=== PATIENT | male | born 1955 | race Caucasian/White ===

== ENCOUNTER 2025-03-19 15:55 | Emergency (ER) | payer MEDICARE ==
[~2025-03-19] VITALS: Ht 170.2 cm; Wt 73.0 kg
[2025-03-19 16:00] VITALS: TEMP 97.9
--- NOTE | 2025-03-19 16:05 | Physician Documentation ---
History of Present Illness Stated Complaint: EYE REDNESS Time Seen by MD: 16:03 HPI This is a very pleasant 69-year-old male that presents to the emergency department for evaluation of an injury to his eye sustained 2 days ago. Patient reports that he was working on a table saw when a piece of wood that has nails in it something flew up and hit him in the eye he thought that he would remove the debris if there was anything he was not sure if there was anything in it at that time then over the course of the last 2 days his eyes become red and sore. Patient reports that it bothers him mostly at night. Patient reports that his eye has become more sensitive to light over the last day or 2. Patient denies any other symptoms at this time. Medication Reconciliation Allergies: Coded Allergies: No Known Allergies (Unverified , 03/19/25) Review of Systems ROS As stated above in the HPI, otherwise all systems are reviewed and negative. Physical Exam Physical Exam VITALS: Reviewed and as above. GENERAL: Alert, no apparent distress. HEENT: Normocephalic, atraumatic, PERRL, EOMI, small area of subconjunctival hemorrhage hemorrhage noted to the superior portion of the globe upon examination this area is consistent with something striking the eye there is no object visible in the eye at this time, area corresponds with the fluorescein strip showing an abrasion area consistent with corneal abrasion, dry mucosa, no erythema. NEURO: Oriented x4, No motor or sensory deficit PSYCH: Normal mood and affect, no agitation Medical Decision Making Additional information obtaine: other Findings 69-year-old male presented to the ED for evaluation of right eye injury sustained two days prior while using a table saw. History notable for direct impact from wood with nails; patient was unsure if any debris remained. Over the past 48 hours, he developed progressive ocular pain, redness, and photophobia, with nocturnal worsening. No other systemic or ocular symptoms reported. On examination, no evidence of open globe injury, penetrating trauma, or retained foreign body. Slit-lamp and fluorescein staining confirmed a corneal abrasion. No signs of corneal ulcer, infiltrate, or vision loss. No contact lens use. Diagnosis: Traumatic corneal abrasion. Medical decision-making: Infection prevention: Topical ophthalmic antibiotics are commonly prescribed for corneal abrasions to reduce risk of secondary infection, though high-quality evidence for efficacy is limited and no specific regimen is strongly supported. Ciprofloxacin drops selected for broad-spectrum coverage. Pain control: Patient advised on oral analgesics (acetaminophen/NSAIDs) for symptomatic relief. Topical NSAIDs may reduce pain but were not prescribed at discharge. No topical anesthetics dispensed for home use per current consensus guidelines. Adjuncts: Artificial tears and sunglasses recommended for comfort and photophobia. Patching: Not indicated; evidence shows no benefit and possible delayed healing. Follow-up: Patient instructed to follow up with primary care and ophthalmology for reassessment and to monitor for complications (infection, persistent pain, vision changes). Disposition: Discharged in stable condition with ciprofloxacin ophthalmic drops, instructions for supportive care, and clear follow-up plan. Differential Dx:Considerations: Other, N/A Departure Disposition: HOME / SELF CARE / HOMELESS Impression: Primary Impression: Corneal abrasion Discharge Instructions: Corneal Abrasion Additional Instructions: You have a corneal abrasion, which is a scratch or injury to the clear surface of your eye. This can cause pain, redness, tearing, and sensitivity to light. Most corneal abrasions heal within a few days. Care Instructions: Antibiotic Eye Drops: Use the ciprofloxacin eye drops as prescribed. Wash your hands before and after using the drops. Do not touch the tip of the bottle to your eye or any surface. Use the drops for the full course, even if your eye feels better. Pain Relief: You may use [id number] pain medicine like acetaminophen or ibuprofen. Artificial tears can help soothe your eye. Sunglasses may help with light sensitivity. Do Not Patch Your Eye: Covering the eye with a patch is not recommended, as it may slow healing. Avoid Contact Lenses: Do not wear contact lenses until your eye is fully healed and cleared by your doctor. Protect Your Eye: Avoid rubbing your eye. Wear protective eyewear if you are doing any work that could injure your eyes in the future. Watch for Problems: If you notice increased pain, redness, discharge, changes in vision, or if your symptoms do not improve in 2448 hours, contact your doctor or return to the emergency department. Follow-Up: Schedule a follow-up visit with your primary care provider or an clinical informatics specialist (lead ruby on rails developer) as directed. Important: If you develop severe pain, vision loss, or if something seems stuck in your eye, seek medical attention right away. Most people recover quickly from a corneal abrasion. Following these instructions will help your eye heal and prevent infection. Referrals: NO PRIMARY CARE PROVIDER (PCP) Prescriptions Ciprofloxacin Hcl Ophth* (Ciloxan 0.35 Ophth Drops*) 2.5 Ml Bottle 1 DROP RIGHTEYE Q6H for 7 Days, #5 ML Prov: EMILIA RUSSELL 03/19/25 Education Educated: Patient Educated regarding: diagnosis, treatment, need for follow up Signature Scribe Signature: A Attestation: Scribed for Emilia Russell by ALISHA Nolasco . 03/19/25 17:48 EMILIA RUSSELL Mar 19, 2025 16:04
[2025-03-19] MEDS: proparacaine 0.5% ophthalmic drops 15ml EACHEYE ONE (17:10)
[2025-03-19] MEDS: fluorescein sod 1mg ophthalmic strip RIGHTEYE ONE (17:10)
[2025-03-19] MEDS ORDERED: CIPR2.5D21 RIGHTEYE (17:40)
[2025-03-19] MEDS: ciprofloxacin 0.3% 2.5ml ophthalmic solution RIGHTEYE ONE (17:50)
[2025-03-19 17:57] VITALS: BP 168/82; PULSE 62; RESP 15; O2SAT 98
== END 2025-03-19 18:01 | disposition home or self-care (01) ==
LOC: ER 15:56
DX: S05.01XA Injury of conjunctiva and corneal abrasion without foreign body, right eye, initial encounter (principal); W22.03XA Walked into furniture, initial encounter; Y93.89 Activity, other specified; Y92.89 Other specified places as the place of occurrence of the external cause; Y99.8 Other external cause status
CPT/HCPCS: 99283